=== PATIENT | male | born 1970 | race Caucasian/White ===

== ENCOUNTER → 2017-04-19 | Outpatient (CLI) | payer BC ==
[2017-04-19 11:02] LABS: ALT/SGPT 35 U/L (12-78); BLOOD UREA NITROGEN 16 mg/dl (7-18); BUN/CREATININE RATIO 15.4 (10-20); CALCIUM 8.7 mg/dl (8.5-10.1); CARBON DIOXIDE 29 mmol/L (21-32); CHLORIDE 105 mmol/L (98-107); CHOLESTEROL 173 mg/dl (0-200); CREATININE 1.04 mg/dl (0.60-1.40); GLUCOSE 147 mg/dl (70-99); POTASSIUM 4.1 mmol/L (3.5-5.1); SODIUM 138 mmol/L (136-145)
[2017-04-19 11:05] LABS: ALB/GLOB RATIO 1.2 (0.9-2); ALKALINE PHOSPHATASE 93 U/L (45-117); AST/SGOT 25 U/L (15-37); CHOLESTEROL/HDL RATIO 4.4; HDL CHOLESTEROL 39 mg/dl; LDL CHOLESTEROL CALCULATED 99 mg/dl; TRIGLYCERIDES 173 mg/dl (0-150); VERY LOW DENSITY LIPOPROT CALC 35 mg/dl
[2017-04-19 11:30] LABS: BASO % 0.6 %; BASO ABS # 0.05 K/uL (0-0.2); COMPLETE YES; EOS % 6.4 %; HEMATOCRIT 47.8 % (42-52); IG% 0.6 %; LYMPH ABS # 2.48 K/uL (1.2-3.4); MEAN CELL VOLUME 84.5 fL (80-100); MEAN CORPUSCULAR HEMOGLOBIN 28.6 pg (25-34); MEAN CORPUSCULAR HGB CONC 33.9 g/dl (32-36); MEAN PLATELET VOLUME 11.7 fL (7.4-10.4); MONO % 9.8 %; NEUT % 50.6 %; PLATELET COUNT 253 K/uL (130-400); RED BLOOD COUNT 5.66 M/uL (4.7-6.1); WHITE BLOOD COUNT 7.76 K/uL (4.8-10.8)
== END | disposition home or self-care (01) ==
LOC: C.LABBC 07:54
PROVIDERS: ATTEND Nurse Practitioner Adult Health
DX: Z00.00 Encounter for general adult medical examination without abnormal findings (principal)

== ENCOUNTER → 2017-05-15 | Outpatient (CLI) | payer BC ==
--- NOTE | 2017-05-15 21:52 | DIAGNOSTIC IMAGING REPORT ---
PELVIS WITHOUT CONTRAST (MRI) HISTORY: CHRONIC HAMSTRING TEAR, right ischial TUBEROSITY PAIN TECHNIQUE: Multiplanar multisequence MRI of the pelvis and proximal thighs was performed without the use of contrast. COMPARISON STUDY: Pelvis and right hip radiograph 05/07/2017. FINDINGS: Normal marrow signal intensity seen throughout the visualized structures of the pelvis and hips. No fracture or dislocation. Small fat-containing left inguinal hernia. No hip effusions. Minimal edema both within and surrounding the proximal right hamstring tendon complex. There is also minimal edema at the attachment to the ischial tuberosity. However, no evidence for avulsion fracture. No evidence for tendon tear at this time. No edema or signal surrounding within the hamstring muscles or quadriceps muscles. Ossific density along the lateral aspect of the right acetabulum consistent with an os acetabula. IMPRESSION: There is minimal edema both within and surrounding the proximal right hamstring tendon complex. This is consistent with a mild tendinopathy. No evidence for tendon tear or avulsion fracture at this time. Electronically signed by: Carmelo Lucia M.D. 05/15/2017 9:50 PM Dictated Date/Time: 05/15/2017 9:45 PM
== END | disposition home or self-care (01) ==
LOC: C.MRI 19:22
PROVIDERS: ATTEND Orthopaedic Surgery
DX: M79.651 Pain in right thigh (principal)

== ENCOUNTER → 2018-02-12 | Outpatient (CLI) | payer OTHER ==
[2018-02-12 11:02] LABS: HEMOGLOBIN A1C 6.3 % (4.5-5.6)
== END | disposition home or self-care (01) ==
LOC: C.LABBC 07:40
PROVIDERS: ATTEND Nurse Practitioner Family
DX: R73.9 Hyperglycemia, unspecified (principal); M79.606 Pain in leg, unspecified

== ENCOUNTER 2021-12-24 05:44 | Observation (INO) ==
--- NOTE | 2021-12-19 08:51 | Anesthesiology Consultation ---
Date of Service December 19, 2021 Assessment & Plan (1) Encounter for pre-operative examination: - COVID screening: Per assessment on 12/18: No known COVID-19 positive contacts or current COVID-19 related symptoms. Travel screen- returned from [place] 12/03 -12/08. Travel via private vehicle to visit family. Mask in public. Patient vaccinated. Patient was Covid positive 10/29/21 (home test). Symptoms at time: low grade fever, cold-like symptoms. Rx'd Paxlovid by PCP 10/29/21. Symptoms resolved. Surgeon arranging preop COVID testing. Awaiting results. - Check [facility] AM DOS Chart Review Chart Review: Acceptable Risk for Surgery and Patient NOT seen in Pre Admission Testing History Surgery Operation Date: 12/24/21 09:25 Proposed Procedures p Open Left Inguinal and - Darrion Guzmna MD, FACS s Umbilical Hernia Repair - Darrion Guzman MD, FACS Height/Weight Height: 6 ft 1 in Weight: 106.594 kg Allergies Allergy/AdvReac Type Severity Reaction Status Date / Time Penicillins Allergy Intermediate Diffuse Verified 12/19/21 08:50 rash Sulfa (Sulfonamide Allergy Intermediate Diffuse Verified 12/19/21 08:50 Antibiotics) rash sulfamethoxazole Allergy Intermediate Diffuse Verified 12/19/21 08:50 rash trimethoprim Allergy Intermediate Diffuse Verified 12/19/21 08:50 rash Medications Home Medications Medication Instructions Recorded Confirmed Last Taken multivitamin 1 tab PO QAM 12/10/18 12/18/21 08/30/20 omega 3 350 mg-dha 235 mg-epa 90 1 cap PO QAM 12/10/18 12/18/21 08/30/20 mg-fish oil 597 mg capsule,delay rel ([place]-3) L.acidophil-L.casei-B.bifid-B.longum-FOS 1 cap PO QAM 09/10/19 12/18/21 08/30/20 2 billion cell-50 mg capsule (Probiotic Blend) cetirizine 10 mg tablet (Zyrtec) 10 mg PO QAM 04/03/20 12/18/21 08/30/20 calcium carb-vit D3-magnesium 250 2 cap PO BID cap 08/15/20 12/18/21 08/30/20 mg-200 unit-125 mg capsule coQ10 (ubiquinol) 100 mg capsule 100 mg PO QAM cap 08/15/20 12/18/21 08/30/20 hydrochlorothiazide 12.5 mg tablet 12.5 mg PO BID #180 tab 02/06/21 12/18/21 Unknown losartan 50 mg tablet 50 mg PO BID #180 tab 02/06/21 12/18/21 Unknown sildenafil (pulm.hypertension) 20 20 mg PO DAILY PRN #30 tab 05/29/21 12/18/21 Unknown mg tablet atorvastatin 10 mg tablet 10 mg PO QPM #90 tab 06/25/21 12/18/21 Unknown gabapentin 300 mg capsule 300 mg PO HS #30 cap 09/17/21 12/18/21 Unknown blood-glucose transmitter (Dexcom #3 ea 10/31/21 12/18/21 Unknown G6 Transmitter) metformin 1,000 mg tablet 1,000 mg PO BID #180 tab 12/11/21 12/18/21 Unknown Past Medical History Medical History Diabetes mellitus, type 2 NIDDM Essential hypertriglyceridemia Gout History of COVID-19 Covid positive 10/29/21 (home test). Symptoms at time: low grade fever, cold- like symptoms. Rx'd Paxlovid by PCP 10/29/21. Symptoms resolved. Hypertension Microalbuminuria Migraine Proteinuria Right hip pain Rotator cuff impingement syndrome of left shoulder Separation of right acromioclavicular joint Past Family History Family History Grandfather (Maternal) Myocardial infarction Mother Heart disease Myocardial infarction Cardiac arrest, Onset Age: 64 Uncle Myocardial infarction Grandmother (Maternal) Family history of diabetes mellitus Myocardial infarction Other No family history of adverse response to anesthesia Denies family history of Colon cancer Ovarian cancer Prostate cancer Breast cancer Past Surgical History Surgical History History of anesthesia reaction Combative with emergence History of colonoscopy 2020 History of elbow surgery right History of left inguinal hernia repair History of nephrectomy pt donated left kidney History of right inguinal hernia repair x2 History of tonsillectomy History of wisdom tooth extraction S/P repair of hydrocele S/P repair of ligament of ankle right ankle Social History Smoking Status: Never smoker Do You Dip or Chew Tobacco: No Hx Alcohol Use: Yes Alcohol type: hard liquor alcohol intake frequency: a few times a month Hx Substance Use: No substance use type: does not use Lab Results Anesthesia Preop Results Results Anesthesia Widget: WBC 7.7 Thousand/uL (3.8-10.8) 12/18/21 Hgb 16.2 g/dL (13.2-17.1) 12/18/21 Hct 47.9 % (38.5-50.0) 12/18/21 Plt 201 Thousand/uL (140-400) 12/18/21 Na 137 mmol/L (135-146) 12/18/21 K 4.2 mmol/L (3.5-5.3) 12/18/21 Cl 102 mmol/L (98-110) 12/18/21 CO2 24 mmol/L (20-32) 12/18/21 BUN 19 mg/dL (7-25) 12/18/21 Creat 0.95 mg/dL (0.70-1.33) 12/18/21 Glucose Level 119 mg/dL (65-99) H 12/18/21 Testing Electrocardiogram Date: 12/17/21 Findings: + NSR @ (37)
[2021-12-24] MEDS ORDERED: LACTATED RINGER'S 1,000 ML IV SCH (06:00)
[2021-12-24] MEDS ORDERED: CLINDAMYCIN IV SCH (06:00)
[2021-12-24] MEDS ORDERED: PREMIXED IV SCH (06:00)
[2021-12-24] MEDS ORDERED: D5W IV SCH (06:00)
--- NOTE | 2021-12-24 06:18 | History & Physical Bridge Note ---
Date of Service December 24, 2021 History & Physical Bridge Note I have examined the patient, reviewed the History & Physical and in the interval since the performance of the History & Physical I have noted the following changes of clinical significance: no changes noted
[2021-12-24] MEDS ORDERED: LIDOCAINE 2% 2 ML VIAL/AMP(20MG/ML) INFIL ONE (06:26)
[2021-12-24] MEDS ORDERED: DEXAMETHASONE SOD INJ 4 MG/ML VIAL ONE (06:26)
[2021-12-24] MEDS ORDERED: PROPOFOL IV EMULSION 10 MG/ML 20 ML VIAL IV ONE (06:26)
[2021-12-24] MEDS ORDERED: fentaNYL citrate 100 MCG/2 ML VIAL ONE (06:26)
[2021-12-24] MEDS ORDERED: ONDANSETRON INJ 2 MG/ML 2 ML VIAL ONE (06:26)
[2021-12-24] MEDS ORDERED: MIDAZOLAM HCL 1 MG/ML 2ML VIAL ONE (06:27)
[2021-12-24] MEDS ORDERED: ONDANSETRON INJ 2 MG/ML 2 ML VIAL IV PRN ×2 (06:45→11:47)
[2021-12-24] MEDS ORDERED: ePHEDrine sulfate 50 MG/ML AMP IV PRN (06:45)
[2021-12-24] MEDS ORDERED: ATROPINE SULFATE 0.1 MG/ML 10ML SYR IV PRN (06:45)
[2021-12-24] MEDS ORDERED: BUPIVACAINE 0.5 % 5 MG/1 ML MPF 30ML VIAL ONE ×2 (06:50→07:21)
[2021-12-24] MEDS ORDERED: GLYCOPYRROLATE 0.2 MG/ML VIAL ONE (07:06)
[2021-12-24] MEDS ORDERED: ROCURONIUM BROMIDE 10 MG/ML 5 ML VIAL IV ONE (07:06)
[2021-12-24] MEDS ORDERED: NEOSTIGMINE METHYLSULFATE 1 MG/ML 10ML VIAL ONE (07:06)
[2021-12-24] MEDS ORDERED: ceFAZolin 330 MG/ML 1 GM VIAL ONE (07:24)
[2021-12-24] MEDS ORDERED: FLOSEAL HEMOSTATIC MATRIX 10ML TOP ONE (08:03)
[2021-12-24] MEDS ORDERED: ACETAMINOPHEN 1,000 MG/100 ML VIAL IV ONE (08:17)
--- NOTE | 2021-12-24 08:17 | Post Operative Brief Note ---
PG Immediate Post Op with CF Date of Surgery December 24, 2021 Pre & Post Diagnosis Operation Date: 12/24/21 07:00 Pre-Op Diagnosis: Left Inguinal Hernia, Umbilical Hernia Post-Op Diagnosis: Left Inguinal Hernia, Umbilical Hernia direct defect I identified the patient and participated in the time-out.: Yes Procedure Operation Date: 12/24/21 07:00 Actual Procedures p Open Left Inguinal and(Not Applicable) - Darrion Guzman MD, FACS-recurrent s Umbilical Hernia Repair(Not Applicable) - Darrion Guzman MD, FACS Surgeon Darrion Guzman MD, FACS Roll Capper Cassandra Woodard Estimated Blood Loss 15 Findings Consistent with Post-Op Diagnosis Patient had a recurrent left inguinal hernia-found to be a direct defect Also had prior inguinal hernia repair with mesh within the internal ring-no evidence of an indirect hernia Severe scar tissue Specimens Specimen Description: A. Lipoma Drains Holloway Catheter
[2021-12-24] MEDS: fentaNYL citrate 100 MCG/2 ML VIAL IV PRN ×3 (09:22→10:12)
--- NOTE | 2021-12-24 09:28 | Anesthesiology Progress Note ---
Date of Service December 24, 2021 Anesthesia Post Procedure Vital Signs Vital Signs: Temp Pulse Pulse Resp BP Pulse Ox 12/24/21 09:20 75 17 101/77 96 12/24/21 09:10 70 12 118/68 98 12/24/21 09:00 69 14 109/74 97 12/24/21 08:50 63 16 118/76 98 12/24/21 08:40 64 12 112/70 100 12/24/21 08:31 96.8 F L 76 15 118/69 98 12/24/21 06:16 98.1 F 64 16 134/87 98 Pain Intensity Abdomen: Pain Intensity: 5 Transfer of Care Handoff Completed per policy Notes Mental Status: alert / awake / arousable and participated in evaluation Patient Amnestic to Procedure: Yes Nausea / Vomiting: adequately controlled Pain: adequately controlled Airway Patency, RR, SpO2: stable & adequate BP & HR: stable & adequate Hydration State: stable & adequate Anesthetic Complications: no major complications apparent and Pt Satisfied with anesthetic care
[2021-12-24] MEDS ORDERED: DEXTROSE 50% 50 ML SYRINGE IV PRN (09:41)
[2021-12-24] MEDS ORDERED: GLUCAGON FOR INJ 1 MG VIAL SQ PRN (09:41)
[2021-12-24] MEDS ORDERED: CARBOHYDRATES FOR HYPOGLYCEMIA PO PRN (09:41)
[2021-12-24] MEDS ORDERED: GLUCOSE 40% GEL 15 GM TUBE PO PRN (09:41)
[2021-12-24] MEDS ORDERED: GLUCOSE 10 TABS/TUBE PO PRN (09:41)
--- NOTE | 2021-12-24 09:41 | Hospitalist Consultation ---
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 Medical service has been consulted for postoperative management of hypertension, solitary kidney status, and type 2 diabetes mellitus Left direct inguinal hernia repair, umbilical hernia repair Status post hernia repair with mesh 12/24/2021 Management per primary surgical team Type 2 diabetes mellitus Hold home metformin monotherapy Last A1c 6.2% Well-controlled Lantus 8 units daily SSI 40, carb ratio 15 last creatinine 12/18 0.95 Hypertension Normotensive postoperatively. Patient did take morning dose of losartan cr stable, slight upper normal for pt. eGFR not reliable in the setting of single xplant. Repeat BMP in morning Resume hydrochlorothiazide 12.5 mg p.o. twice daily and losartan 50 mg p.o. twice daily morning of 12/25 if creatinine stable Hypertriglyceridemia Following as outpatient, and defer gemfibrozil and pending repeat labs in approximately 1 month for reassessment of pharmacotherapy Continue outpatient management of this Continue atorvastatin 10 mg nightly Solitary kidney, status post kidney donation Preop creatinine 0.95 BMP daily Avoid NSAIDs, nephrotoxins Ibuprofen deferred, Tylenol added for pain control. May use oxycodone scaled for breakthrough pain Peyronie's disease Follows with urology as outpatient, at last visit stable and nonpainful Pain at prior exam? Due 2 hernia above, treated as noted Migraine No acute headache at time of assessment. Stable. No acute management for this. 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 Patient did take a dose of losartan preoperatively at home Received perioperative ciprofloxacin Patient reports that he overall feels well. With respect to his kidneys he reports that he donated a single kidney 19 years ago and follows with Dr. Bright as needed. Reports he has never had a problem with acute kidney injury, elevated kidney numbers, or needing to renally dose medications. Feels he has been and continues to pee normally. Does worry about his family history of heart disease, he is following triglycerides and cholesterol closely as an outpatient and is currently on a statin, with outpatient follow-up coming up in December to determine if he should go back on gemfibrozil. Denies any history of heart attack or heart damage. No history of lung disease. Rarely uses alcohol, no tobacco use. Medical History: Reviewed Medications: Reviewed Surgical History: Reviewed Allergies: Reviewed Social History: Rare alcohol social use, denies tobacco use, denies recreational drug use, denies medical marijuana use Code Status: Full code. Surrogate decision maker would be his Allergies Allergy/AdvReac Type Severity Reaction Status Date / Time Penicillins Allergy Intermediate Diffuse Verified 12/24/21 06:08 rash Sulfa (Sulfonamide Allergy Intermediate Diffuse Verified 12/24/21 06:08 Antibiotics) rash sulfamethoxazole Allergy Intermediate Diffuse Verified 12/24/21 06:08 rash trimethoprim Allergy Intermediate Diffuse Verified 12/24/21 06:08 rash Home Medications Medication Instructions Recorded Confirmed Type multivitamin 1 tab PO QAM 12/10/18 12/24/21 History omega 3 350 mg-dha 235 mg-epa 90 1 cap PO QAM 12/10/18 12/24/21 History mg-fish oil 597 mg capsule,delay rel ([place]-3) L.acidophil-L.casei-B.bifid-B.longum-FOS 1 cap PO QAM 09/10/19 12/24/21 History 2 billion cell-50 mg capsule (Probiotic Blend) cetirizine 10 mg tablet (Zyrtec) 10 mg PO QAM 04/03/20 12/24/21 History calcium carb-vit D3-magnesium 250 2 cap PO BID cap 08/15/20 12/24/21 History mg-200 unit-125 mg capsule coQ10 (ubiquinol) 100 mg capsule 100 mg PO QAM cap 08/15/20 12/24/21 History hydrochlorothiazide 12.5 mg tablet 12.5 mg PO BID #180 tab 02/06/21 12/24/21 Rx losartan 50 mg tablet 50 mg PO BID #180 tab 02/06/21 12/24/21 Rx sildenafil (pulm.hypertension) 20 20 mg PO DAILY PRN #30 tab 05/29/21 12/24/21 Rx mg tablet gabapentin 300 mg capsule 300 mg PO HS #30 cap 09/17/21 12/24/21 Rx blood-glucose transmitter (Dexcom #3 ea 10/31/21 12/18/21 Rx G6 Transmitter) metformin 1,000 mg tablet 1,000 mg PO BID #180 tab 12/11/21 12/24/21 Rx atorvastatin 10 mg tablet 10 mg PO QPM #90 tab 12/24/21 Rx ciprofloxacin HCl 500 mg tablet 500 mg PO BID #10 tab 12/24/21 Rx hydrocodone 5 mg-acetaminophen 325 1 tab PO Q4H PRN #30 tab 12/24/21 Rx mg tablet Patient History Medical History Diabetes mellitus, type 2 NIDDM Essential hypertriglyceridemia Gout History of COVID-19 Covid positive 10/29/21 (home test). Symptoms at time: low grade fever, cold- like symptoms. Rx'd Paxlovid by PCP 10/29/21. Symptoms resolved. Hypertension Microalbuminuria Migraine Proteinuria Right hip pain Rotator cuff impingement syndrome of left shoulder Separation of right acromioclavicular joint Surgical History H/O umbilical hernia repair (12/24/21) p Open Left Inguinal and(Not Applicable) - Darrion Guzman MD, FACS-recurrent s Umbilical Hernia Repair(Not Applicable) - Darrion Guzman MD, FACS History of anesthesia reaction Combative with emergence History of colonoscopy 2020 History of elbow surgery right History of left inguinal hernia repair History of nephrectomy pt donated left kidney History of right inguinal hernia repair x2 History of tonsillectomy History of wisdom tooth extraction S/P left inguinal hernia repair (12/24/21) p Open Left Inguinal and(Not Applicable) - Darrion Guzman MD, FACS-recurrent s Umbilical Hernia Repair(Not Applicable) - Darrion Guzman MD, FACS S/P repair of hydrocele S/P repair of ligament of ankle right ankle Family History Grandfather (Maternal) Myocardial infarction Mother Heart disease Myocardial infarction Cardiac arrest, Onset Age: 64 Uncle Myocardial infarction Grandmother (Maternal) Family history of diabetes mellitus Myocardial infarction Other No family history of adverse response to anesthesia Denies family history of Colon cancer Ovarian cancer Prostate cancer Breast cancer Social History Smoking Status: Never smoker Second Hand Exposure: No; Do You Dip or Chew Tobacco: No; Tobacco Cessation Education Requested by Patient: No Hx Alcohol Use: Yes Alcohol type: hard liquor Alcohol Intake Frequency: Monthly or Less Hx Substance Use: No Preferred Language: Moroccan Communication Ability: Effective Visual Impairment: No Limitations Hearing Ability: Normal Dry Box Tender Required: No Beliefs That Will Affect Care: None marital status: Current Living Situation: Spouse Current Living Situation Comment: Lives with and 2 kids current occupational status: employed current occupation: teacher How many Children do You have: 2 Other Information That Helps Us Care for You: No Feels Safe at Home: Yes Safety Concerns: Feels Safe At This Time Childhood Exposure to Second-Hand Smoke: No caffeine: Yes during the past year weight has: increased > 10 lbs Dental Care, Regularly: Yes Physical Activity Frequency: 5-6 Times per Week Physical Activity Frequency Comment: cardio Seatbelt Use: always Sunscreen Use: Yes Assistive Devices: Glasses Review of Systems Review of Systems: All systems reviewed & are unremarkable except as noted in Subjective Physical Exam Physical Exam: General: A&Ox3. NAD. Cooperative. HEENT: Atraumatic, normocephalic. Vision and hearing grossly intact Pulm: CTAB A&P. -wheezes, -rales, -rhonchi. Symmetrical chest rise. No increase in work of breathing. No respiratory distress. Cardiac: RRR, -mrg. Radial pulses intact and symmetrical. Abdominal: Umbilical and left lower abdominal incisions with overlying surgical trend laying intact. Left abdominal/inguinal incision with trace sanguinous staining otherwise dressing C/D/I. Extremities: Warm, dry. Sensation soft touch intact in hands and feet without asymmetry. Warp Tester strength and ankle dorsiflexion/plantarflexion 5/5 bilaterally. Cap refill brisk. Results & Data Results & Data ([facility]) Vital Signs (Past 12 Hours) Vital Signs Temp Pulse Pulse Resp BP Pulse Ox 12/24/21 09:30 75 17 101/77 96 12/24/21 09:20 75 17 101/77 96 12/24/21 09:10 70 12 118/68 98 12/24/21 09:00 69 14 109/74 97 12/24/21 08:50 63 16 118/76 98 12/24/21 08:40 64 12 112/70 100 12/24/21 08:31 36.0 C L 76 15 118/69 98 12/24/21 06:16 36.7 C 64 16 134/87 98 PG Care Time/CCT Total # of Minutes Spent Total Time Spent with Patient: Total time spent is greater than 50% in coordination of care (as documented) at patient's floor/unit and/or counseling patient: Coding Level of Care Code 93934 Inpt Consult Level 4 Diagnoses Diabetes mellitus E11.9 Diabetes mellitus type: type 2 Diabetes mellitus intermediate insulin use: without terminal manager use Diabetes mellitus complication status: without complication Benign essential hypertension I10 Hypercholesterolemia E78.00 Solitary kidney Q60.0 Groin pain R10.30 Peyronie's disease N48.6 Migraine aura without headache G43.109 Left inguinal hernia K40.90 (1) Diabetes mellitus Diabetes mellitus type: type 2 Diabetes mellitus intermediate insulin use: without intermediate use Diabetes mellitus complication status: without complication Qualified Code(s): E11.9 - Type 2 diabetes mellitus without complications
--- NOTE | 2021-12-24 09:42 | Operative Report (OR) ---
DATE OF OPERATION: 12/24/2021. NAME OF OPERATION: Recurrent left inguinal hernia repair with direct defect. Umbilical hernia darian cabello STAFF SURGEON: Darrion Guzman MD. DAYCARE PROVIDER: Johan Woodard PA-C. ANESTHESIA: General. DESCRIPTION OF PROCEDURE: The patient was brought in the operating room and placed on the operating table in supine position. Pneumatic stockings, Holloway catheter, orogastric tube were placed. His abd omen was prepped and draped in the usual fashion as well as lower abdomen. Umbilical hernia was appro ached first. 0.5% plain Marcaine was used to anesthetize all incisions and also the deep tissue in b oth wounds. Incision was made above the umbilicus, carrying dissection down, identifying the umbilic al hernia sac, which was opened. It contained preperitoneal adipose tissue, which was mobilized and reduced. The defect was approximately 1.5 cm. It was closed using interrupted #1 Ethibond suture. Deep tissue anesthetized using 0.5% plain Marcaine. Subcutaneous tissue reapproximated using 2-0 rip in suture. Umbilical tissue reapproximated to the subcutaneous tissue using 2-0 chromic suture, then the skin reapproximated using 4-0 nylon suture. Left inguinal area was approached. Old scar was anesthetized using 0.5% plain Marcaine. Incision wa s made. My assistant drafter did help with prepping, draping, repair of both hernias and closure of the woun ds. The left inguinal area was continued, carrying dissection down through significant scar tissue fr om prior repair. External oblique fibers were identified. They were mobilized with some difficulty. It was apparent that the patient did have prior mesh placed in the internal ring. This was with fabienne e difficulty mobilized away from the external oblique fibers. Cord structures were identified. Ther e was a slight amount of bleeding. We did ligate sites with 2-0 chromic suture. I was able to ident yaz a lipoma structure in the cord below the inguinal ligament. It was mobilized and found to be a d irect hernia sac. The tissue was mobilized, partially excised and then reduced. The defect was only approximately 1.5 cm in diameter. A mesh plug was placed and then secured to surrounding tissue usi ng 2-0 Ethibond suture and 0 silk suture. Some FloSeal was used. Hemostasis seemed to be adequate. The external oblique fibers were closed over the tissue around the cord structures using 2-0 Ethibon d suture and 0 silk suture. Site was irrigated with antibiotic solution, again anesthetized using 0. 5% plain Marcaine. Subcutaneous tissue reapproximated using 2-0 plain suture and the skin reapproxim ated using 4-0 nylon suture. The patient was transferred to recovery room in stable condition. Job ID: [id number]
[2021-12-24] MEDS ORDERED: hydroCHLOROthiazide 25 MG TAB PO SCH (11:47)
[2021-12-24] MEDS ORDERED: HYDROmorphone INJ 0.5 MG/0.5 ML SYR IV PRN (11:47)
[2021-12-24] MEDS ORDERED: IBUPROFEN 600 MG TAB PO PRN (11:47)
[2021-12-24] MEDS ORDERED: PROMETHAZINE HCL 12.5 MG in SODIUM CHLORIDE 0.9% 50 ML IV PRN (11:47)
[2021-12-24] MEDS ORDERED: SILDENAFIL CITRATE 20 MG TABLET PO PRN (11:47)
[2021-12-24] MEDS ORDERED: LOSARTAN POTASSIUM 50 MG TAB PO SCH (11:47)
[2021-12-24] MEDS: SODIUM CHLORIDE 0.9% 500 ML IV SCH ×2 (11:54→23:10)
[2021-12-24] MEDS: MAGNESIUM HYDROXIDE SUSP 30 ML UDC PO SCH ×2 (12:54→21:30)
[2021-12-24] MEDS: DOCUSATE SODIUM/SENNA 50/8.6MG TAB PO SCH ×2 (12:54→21:30)
[2021-12-24] MEDS: CIPROFLOXACIN / D5W 400 MG/200 ML BAG IV SCH (13:30)
[2021-12-24] MEDS ORDERED: ACETAMINOPHEN 500 MG TAB PO PRN (13:49)
[2021-12-24] MEDS: INSULIN ASPART PER UNIT SC SCH ×3 (13:56→21:15)
[2021-12-24 14:45] LABS: Est GFR (Non-African American) 67.3 ml/min; Potassium 3.8 mmol/L (3.5-5.1)
[2021-12-24 14:46] LABS: BUN Creatinine Ratio 16.4 (10-20); Calcium 8.9 mg/dl (8.5-10.1); Creatinine Clr Calc Pharmacy 89.7 ml/min
[2021-12-24 15:02] LABS: Basophils # (auto) 0.01 K/uL (0-0.2); Basophils % (auto) 0.1 %; Eosinophils # (auto) 0.02 K/uL (0-0.5); Eosinophils % (auto) 0.2 %; Immature Granulocytes # (auto) 0.05 K/uL (0.00-0.02); Immature Granulocytes % (auto) 0.4 %; Lymphocytes # (auto) 1.11 K/uL (1.2-3.4); Lymphocytes % (auto) 9.8 %; Mean Corpuscular Hemoglobin 28.3 pg (25-34); Mean Corpuscular Hgb Conc 34.1 g/dL (32-36); Mean Platelet Volume 11.2 fL (7.4-10.4); Monocytes # (auto) 0.29 K/uL (0.11-0.59); Monocytes % (auto) 2.5 %; Platelet Count 168 K/uL (130-400); RDW Coefficient of Variation 13.3 % (11.5-14.5); RDW Standard Deviation 39.8 fL (36.4-46.3); White Blood Count 11.38 K/uL (4.8-10.8)
[2021-12-24] MEDS: oxyCODONE HCL IR 5 MG TAB (IMMEDIATE RELEASE) PO PRN ×2 (18:16→23:09)
[2021-12-24] MEDS: INSULIN GLARGINE SOLOSTAR 100 UNITS/ML 3 ML PEN SC SCH (19:36)
[2021-12-24] MEDS ORDERED: GABAPENTIN 300 MG CAP PO SCH (21:00)
[2021-12-24] MEDS ORDERED: ATORVASTATIN 10 MG TAB PO SCH (21:00)
[2021-12-25] MEDS: CIPROFLOXACIN / D5W 400 MG/200 ML BAG IV SCH (02:03)
[2021-12-25 05:42] LABS: Basophils # (auto) 0.01 K/uL (0-0.2); Basophils % (auto) 0.1 %; Eosinophils # (auto) 0.06 K/uL (0-0.5); Eosinophils % (auto) 0.4 %; Hematocrit (blood only) 44.2 % (42-52); Hemoglobin 14.9 g/dL (14.0-18.0); Immature Granulocytes # (auto) 0.04 K/uL (0.00-0.02); Immature Granulocytes % (auto) 0.3 %; Lymphocytes # (auto) 2.19 K/uL (1.2-3.4); Mean Corpuscular Hemoglobin 28.3 pg (25-34); Mean Corpuscular Hgb Conc 33.7 g/dL (32-36); Mean Corpuscular Volume 83.9 fL (80-100); Mean Platelet Volume 10.9 fL (7.4-10.4); Monocytes # (auto) 1.44 K/uL (0.11-0.59); Monocytes % (auto) 9.9 %; Neutrophils # (auto) 10.83 K/uL (1.4-6.5); Neutrophils % (auto) 74.3 %; Platelet Count 177 K/uL (130-400); RDW Coefficient of Variation 13.4 % (11.5-14.5); RDW Standard Deviation 40.6 fL (36.4-46.3); Red Blood Count 5.27 M/uL (4.7-6.1); White Blood Count 14.57 K/uL (4.8-10.8)
[2021-12-25 06:02] LABS: BUN Creatinine Ratio 15.1 (10-20); Calcium 8.4 mg/dl (8.5-10.1); Creatinine Clr Calc Pharmacy 103.3 ml/min; Est GFR (African American) 92.4 ml/min; Est GFR (Non-African American) 79.7 ml/min; Potassium 3.8 mmol/L (3.5-5.1)
[2021-12-25] MEDS: oxyCODONE HCL IR 5 MG TAB (IMMEDIATE RELEASE) PO PRN (07:23)
[2021-12-25 08:11] LABS: Estimated Average Glucose 143 mg/dl; Hemoglobin A1C 6.6 % (4.5-5.6)
[2021-12-25] MEDS: DOCUSATE SODIUM/SENNA 50/8.6MG TAB PO SCH (08:42)
[2021-12-25] MEDS: MAGNESIUM HYDROXIDE SUSP 30 ML UDC PO SCH (08:42)
[2021-12-25] MEDS: INSULIN GLARGINE SOLOSTAR 100 UNITS/ML 3 ML PEN SC SCH (08:44)
[2021-12-25] MEDS: INSULIN ASPART PER UNIT SC SCH (08:46)
--- NOTE | 2021-12-27 10:41 | Discharge Summary ---
Date of Service December 25, 2021 Principal Diagnosis Recurrent left inguinal hernia Umbilical hernia Discharge Exam Constitutional WD/WN, vitals as above Gastrointestinal (Abdomen) Inspection/Auscultation: abdomen normal to inspection and + abdominal surgical incision (dry, no hematoma) Discharge Data Allergies Allergy/AdvReac Type Severity Reaction Status Date / Time Penicillins Allergy Intermediate Diffuse Verified 12/24/21 06:08 rash Sulfa (Sulfonamide Allergy Intermediate Diffuse Verified 12/24/21 06:08 Antibiotics) rash sulfamethoxazole Allergy Intermediate Diffuse Verified 12/24/21 06:08 rash trimethoprim Allergy Intermediate Diffuse Verified 12/24/21 06:08 rash Procedures Performed Operation Date: 12/24/21 07:00 Actual Procedures p Open Left Inguinal and(Not Applicable) - Darrion Guzman MD, FACS s Umbilical Hernia Repair(Not Applicable) - Darrion Guzman MD, FACS Hospital Course (1) Left inguinal hernia: 51 y/o male was taken to the operating room for repair of umbilical hernia and recurrent left inguinal hernia. He was transferred to the surgical floor for overnight observation given difficult dissection. He remained stable overnight and was discharged home in the morning. Total Time Total Time Spent Total Time Spent (In Minutes): 15 Discharge Plan Discharge Items Patient Disposition: Home - Self-Care Reason For Visit: Left Inguinal Hernia, Umbilical Hernia Discharge Diagnosis: Umbilical hernia repair, recurrent left inguinal hernia repair Activity: As commented below Activity Comment: Light activity for 4 weeks Lifting: No more than 25 pounds Bathing Comment: October shower 12/25/2021 Sexual Activity: When tolerated Exercise Comment: Wait 4 weeks Non-emergency contact: Primary Care Provider and Surgeon Call non-emergency contact if: your pain is not controlled, your temperature is above 101 and your wound has increased drainage Follow-up/Referrals: Darrion Guzman MD, FACS [Physician] - 01/02/22 8:30 am Samuel Warren III, CRNP [Primary Care Provider] - Diet: Carb Consistent or DM2 Addtl Attending Provider Instructions: SPECIAL CARE INSTRUCTIONS: * Cover incisions and change daily for comfort/drainage. * * Avoid constipation- * May Use Senokot S and Milk of Magnesium twice daily as directed on the package * May use ibuprofen for pain as tolerated. * Expect some swelling and bruising. Call your doctor if: * Temperature above 101 degrees * Pain not relieved by pain medicine ordered * There is increased drainage or redness from any incision * You have any unanswered questions or concerns [phone]. FOLLOW UP VISIT: If not already scheduled, please call the office for a follow-up visit. For next weeksome suture removal OFFICE PHONE NUMBER: Dr. Guzman Office Pending Studies at Discharge: No Stand-Alone Forms: My [facility] [place] [employer], Opioid Pain Management Medications and DC Order Prescriptions: New hydrocodone-acetaminophen 5-325 mg tablet 1 tab PO Q4H PRN (Reason: pain) Qty: 30 RF: 0 ciprofloxacin HCl 500 mg tablet 500 mg PO BID Qty: 10 RF: 0 Continued losartan 50 mg tablet 50 mg PO BID Qty: 180 RF: 3 hydrochlorothiazide 12.5 mg tablet 12.5 mg PO BID Qty: 180 RF: 3 gabapentin 300 mg capsule 300 mg PO HS Qty: 30 RF: 5 (DME) Dexcom G6 Transmitter Device See Rx Instructions .ROUTE .MEDSUPPLY Qty: 3 RF: 1 metformin 1,000 mg tablet 1,000 mg PO BID Qty: 180 RF: 1 atorvastatin 10 mg tablet 10 mg PO QPM Qty: 90 RF: 1 cetirizine [Zyrtec] 10 mg tablet 10 mg PO QAM RF: 0 sildenafil (pulm.hypertension) 20 mg tablet 20 mg PO DAILY PRN (Reason: sexual activity) Qty: 30 RF: 2 multivitamin Tablet 1 tab PO QAM RF: 0 [place]-3 350 mg-235 mg- 90 mg-597 mg Capsule,Delayed Release(Dr/Ec) 1 cap PO QAM RF: 0 coQ10 (ubiquinol) 100 mg capsule 100 mg PO QAM RF: 0 Probiotic Blend 2 billion cell-50 mg Capsule 1 cap PO QAM RF: 0 calcium carb-vit D3-magnesium 250-200-125 mg-unit-mg capsule 2 cap PO BID RF: 0 Discharge Orders: Discharge Order (Routine); Ordered 12/25/21 Ordered By: Darrion [place]/Other Patient Handouts: Managing Type 2 Diabetes Admission Data Admit Date/Time: 12/24/21 08:26 Attending Provider: Darrion Guzman Admit Provider: Darrion Guzman Primary Care Provider: Samuel Warren III Other Interventions: Discharge Summary Assessment (RN) Last Done: 12/25/21 10:08 Coding Level of Care Code D/C DAY MANAGEMENT <30 MINS Diagnoses Left inguinal hernia K40.90
== END 2021-12-25 10:42 | disposition home or self-care (01) ==
LOC: ASU 05:44 → PACUINP 08:26 → INTOOBSV 08:26 → 3N 11:43